=== PATIENT | male | born 1935 | race Caucasian/White ===

== ENCOUNTER 2019-12-26 15:29 | Emergency (ER) | payer MEDICARE, OTHER ==
[2019-12-26] MEDS ORDERED: Sodium Chloride 0.9% 10 ML Syringe FLUSH PRN (15:54)
[2019-12-26] MEDS ORDERED: Sodium Chloride 0.9% 500 ML IV ONE (15:54)
[2019-12-26] MEDS ORDERED: Clindamycin Phosphate 900 MG in Sodium Chloride 0.9% 100 ML IV ONE (15:59)
--- NOTE | 2019-12-26 17:09 | EDM.PDOC ---
ED HPI GENERAL MEDICAL PROBLEM - General Chief Complaint: ENT Problem Stated Complaint: TOOTH PAIN/POSS INFECTION Time Seen by Provider: 12/26/19 15:45 Source of Information: Reports: Patient, Significant Other History Limitations: Reports: No Limitations - History of Present Illness INITIAL COMMENTS - FREE TEXT/NARRATIVE: Zeb is an 84 year old male with a history of congestive heart failure, parkinsons, previous NM on eliquis and plavix who presents today with right facial swelling and pain. Reports he was seen in [place] and given a dental block for pain control. night his face began to swelling and become erythematous. He has been taking OTC tylenol for pain. no fevers or vomiting. Denies any bad taste in his mouth. Last dental visit was in July. They are visiting from [place] and plan to go home tomorrow. Oral/Mouth Pain Score (Numeric/FACES): 2 - Related Data Allergies Allergy/AdvReac Type Severity Reaction Status Date / Time gluten Allergy Severe Other Verified 12/26/19 15:37 Penicillins Allergy Severe Anaphylactic Verified 12/26/19 15:37 Shock Home Meds: Home Meds Clindamycin HCl 300 mg PO Q6HR #40 capsule 12/26/19 [Rx] Past Medical History Gastrointestinal History: Reports: Other (See Below) Other Gastrointestinal History: celiac disease Neurological History: Reports: Parkinson's - Past Surgical History GI Surgical History: Reports: Hernia Repair/Other Social & Family History - Tobacco Use Smoking Status *Q: Former Smoker Used Tobacco, but Quit: Yes Month/Year Tobacco Last Used: 20 years ago - Caffeine Use Caffeine Use: Reports: None - Recreational Drug Use Recreational Drug Use: No ED ROS ENT - Review of Systems Review Of Systems: See Below Constitutional: Denies: Fever HEENT: Reports: Dental Pain (right upper), Other (right sided facial pain, swelling and erythema) GI/Abdominal: Denies: Vomiting ED EXAM, ENT - Physical Exam Exam: See Below Exam Limited By: No Limitations General Appearance: Alert, WD/WN, No Apparent Distress Eye Exam: Bilateral Eye: Normal Inspection Ears: Normal External Exam, Normal Canal, Normal TMs Nose: Normal Inspection Mouth/Throat: Other (dental abscess along teeth #3-6) Head: Facial Ecchymosis (right lateral eye), Other (indurated area lateral to the nose on the right, right maxilla and cheeck are swollen, arm and erythematous) Respiratory/Chest: No Respiratory Distress, Lungs Clear, Normal Breath Sounds Cardiovascular: Normal Peripheral Pulses, Regular Rate, Rhythm, Systolic Murmur (grade 3 ) Neurological: Alert, Oriented, Normal Cognition Psychiatric: Normal Affect, Normal Mood Skin: Warm, Dry, Normal Color Course - Vital Signs Last Recorded V/S: Last Vital Signs Temp 97.9 F 12/26/19 18:27 Pulse 80 12/26/19 18:27 Resp 18 12/26/19 15:34 BP 130/80 12/26/19 18:27 Pulse Ox 95 12/26/19 15:34 - Orders/Labs/Meds Orders: Active Orders 24 hr Category Date Time Status Peripheral IV Care [RC] . DIRECTED Care 12/26/19 15:54 Active CULTURE BLOOD [BC] Stat Lab 12/26/19 16:30 Received CULTURE BLOOD [BC] Stat Lab 12/26/19 16:40 Received Blood Culture x2 Reflex Set [OM.PC] Stat Oth 12/26/19 16:03 Ordered Peripheral IV Insertion Adult [OM.PC] Routine Oth 12/26/19 15:54 Ordered Labs: Laboratory Tests 12/26/19 12/26/19 12/26/19 Range/Units 16:40 16:40 16:40 WBC 14.57 H (4.23-9.07) K/mm3 RBC 4.18 L (4.63-6.08) M/mm3 Hgb 12.4 L (13.7-17.5) gm/dl Hct 37.2 L (40.1-51.0) % MCV 89.0 (79.0-92.2) fl MCH 29.7 (25.7-32.2) pg MCHC 33.3 (32.2-35.5) g/dl RDW Std Deviation 49.8 H (35.1-43.9) fL Plt Count 197 (163-337) K/mm3 MPV 9.5 (9.4-12.3) fl Neutrophils % (Manual) 85 H (40-60) % Band Neutrophils % 0 (0-10) % Lymphocytes % (Manual) 8 L (20-40) % Atypical Lymphs % 0 % Monocytes % (Manual) 7 (2-10) % Eosinophils % (Manual) 0 L (0.8-7.0) % Basophils % (Manual) 0 L (0.2-1.2) Platelet Estimate Adequate Plt Morphology Comment Normal RBC Morph Comment Normal Sodium 133 L (136-145) mEq/L Potassium 3.8 (3.5-5.1) mEq/L Chloride 99 (98-107) mEq/L Carbon Dioxide 23 (21-32) mEq/L Anion Gap 14.8 (5-15) BUN 18 (7-18) mg/dL Creatinine 1.1 (0.7-1.3) mg/dL Est Cr Clr Drug Dosing 54.87 mL/min Estimated GFR (MDRD) > 60 (>60) mL/min BUN/Creatinine Ratio 16.4 (14-18) Glucose 104 (83-115) mg/dL Lactic Acid 1.3 (0.4-2.0) mmol/L Calcium 8.2 L (8.5-10.1) mg/dL Total Bilirubin 1.0 (0.2-1.0) mg/dL AST 22 (15-37) U/L ALT 7 L (16-63) U/L Alkaline Phosphatase 105 (46-116) U/L C-Reactive Protein 11.4 H* (<1.0) mg/dL Total Protein 6.3 L (6.4-8.2) g/dl Albumin 3.0 L (3.4-5.0) g/dl Globulin 3.3 gm/dL Albumin/Globulin Ratio 0.9 L (1-2) Meds: Medications Discontinued Medications Generic Name Dose Route Start Last Admin Trade Name Freq PRN Reason Stop Dose Admin Sodium Chloride 500 mls @ 500 mls/hr 12/26/19 15:54 12/26/19 16:24 Normal Saline IV 12/26/19 16:53 500 mls/hr ONETIME ONE Administration Clindamycin Phosphate 900 mg/ 106 mls @ 200 mls/hr 12/26/19 15:59 12/26/19 16:23 Sodium Chloride IV 12/26/19 16:30 200 mls/hr ONETIME ONE Administration Sodium Chloride 10 ml 12/26/19 15:54 12/26/19 16:24 Saline Flush FLUSH 10 ml ASDIRECTED PRN Administration Keep Vein Open - Re-Assessments/Exams Free Text/Narrative Re-Assessment/Exam: 12/26/19 18:22 i reviewed his labs with him and his . He is more alert now. I offered admission, he declined. He would like to go home. I will discharge him home on clindamycin and instructions for close follow-up. discharge instructions as documented. Departure - Departure Time of Disposition: 18:23 Disposition: Home, Self-Care 01 Condition: Fair Clinical Impression: Dental abscess, Facial swelling - Discharge Information *PRESCRIPTION DRUG MONITORING PROGRAM REVIEWED*: No *COPY OF PRESCRIPTION DRUG MONITORING REPORT IN PATIENT NIKOLAY: No Prescriptions: Clindamycin HCl 300 mg PO Q6HR #40 capsule Instructions: Dental Abscess, [id number] Referrals: PCP,Not In Area [Primary Care Provider] - Forms: ED Department Discharge Additional Instructions: Take the clindamycin as prescribed. 1 cap PO four times a day for 10 days. Continue on OTC tylenol as needed for pain. Recommend a probiotic. These are available OTC. Follow-up with your dentist and/or your family medicine provider as soon as you return home. Please return to the ER should your symptoms change or worsen. Sepsis Event Note (ED) - Evaluation Sepsis Screening Result: Possible Sepsis Risk - Focused Exam Vital Signs: Vital Signs Temp Pulse Resp BP Pulse Ox 12/26/19 18:27 97.9 F 80 130/80 12/26/19 15:34 99.4 F 96 18 117/75 95 - My Orders Last 24 Hours: My Active Orders 12/26/19 15:54 Peripheral IV Care [RC] . DIRECTED Peripheral IV Insertion Adult [OM.PC] Routine 12/26/19 16:03 Blood Culture x2 Reflex Set [OM.PC] Stat 12/26/19 16:30 CULTURE BLOOD [BC] Stat 12/26/19 16:40 CULTURE BLOOD [BC] Stat - Assessment/Plan Last 24 Hours: My Active Orders 12/26/19 15:54 Peripheral IV Care [RC] . DIRECTED Peripheral IV Insertion Adult [OM.PC] Routine 12/26/19 16:03 Blood Culture x2 Reflex Set [OM.PC] Stat 12/26/19 16:30 CULTURE BLOOD [BC] Stat 12/26/19 16:40 CULTURE BLOOD [BC] Stat
== END 2019-12-26 18:50 | disposition home or self-care (01) ==
LOC: JD.ED 15:29
DX: K04.7 Periapical abscess without sinus (principal); G20 Parkinson's disease; Z87.891 Personal history of nicotine dependence; Z91.048 Other nonmedicinal substance allergy status; Z88.0 Allergy status to penicillin
CPT/HCPCS: 36415; 80053; 83605; 85007; 85027; 86140; 87040; 96365; 99283; J3490; J7030; J7050